=== PATIENT | female | born 2000 | race Caucasian/White ===

== ENCOUNTER 2023-03-26 03:02 | Emergency (ER) | payer SELFPAY ==
[2023-03-26] MEDS ORDERED: ONDANSETRON 4 MG/2 ML VIAL ONE (03:52)
[2023-03-26] MEDS ORDERED: NA CHLORIDE 0.9% 1,000 ML ONE (03:52)
[2023-03-26 03:56] LABS: Specific Gravity 1.029 (1.005-1.030)
[2023-03-26 03:58] LABS: Calcium Oxalate Crystals- Ur Moderate /HPF (None Seen); Specific Gravity 1.029 (1.005-1.030); Urine Bacteria <20 /HPF (<20); Urine Bilirubin NEGATIVE (Negative); Urine Blood Negative (Negative); Urine Clarity Extremely Turbid (Clear); Urine Color Yellow (Yellow); Urine Glucose NEGATIVE (Negative); Urine Mucus 1+ /HPF (None Seen); Urine Protein TRACE (Negative); Urine Urobilinogen 1+ (Normal)
[2023-03-26 04:05] LABS: Absolute Lymphocytes (CBC) 3.3 K/uL (0.7-4.9); Hematocrit 40.9 % (36.0-45.0); Lymphocytes % 32.6 % (15.3-44.8); MPV 7.2 fL (7.6-11.3); Platelets 314 thou/uL (152-406); RBC Red Blood Cell Count 4.65 M/uL (3.86-4.86)
[2023-03-26 04:14] LABS: Albumin 3.7 g/dL (3.4-5.0); Bilirubin Total 0.5 mg/dL (0.2-1.0); Potassium 3.7 mEq/L (3.5-5.1); Protein, Total 7.5 g/dL (6.4-8.2)
--- NOTE | 2023-03-26 05:25 | EDPHYS ---
Physician Documentation [facility] Name: Daina Mehta Age: 22 yrs Sex: Female : 2000 Arrival Date: 03/26/2023 Time: 03:02 Bed 5 Private MD: ED Physician Will Feliciano HPI: 03/26 03:33 This 22 yrs old Female presents to ER via Ambulatory with complaints of sp4 Abdominal Pain, Back Pain. 03:44 a 22-year-old female presents with acute onset of upper abdominal pain described as sp4 crampy pain starting several hours ago at home. Patient has denied any other symptoms. 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 - Social history:: Smoking status: Patient denies any tobacco usage or history of. Patient/guardian denies using alcohol, street drugs. - Family history:: not pertinent. ROS: 03:44 Constitutional: Negative for fever, chills, and weight loss, positive upper abdominal sp4 pain bilaterally 03:44 All other systems are negative, Exam: 03:44 Constitutional: This is a well developed, well nourished patient who is awake, alert, sp4 and in no acute distress. Head/Face: Normocephalic, atraumatic. Eyes: Pupils equal round and reactive to light, extra-ocular motions intact. Lids and lashes normal. Conjunctiva and sclera are not injected. Cornea within normal limits. Periorbital areas with no swelling, redness, or edema. ENT: Nares patent. No nasal discharge, no septal abnormalities noted. Tympanic membranes are normal and external auditory canals are clear. Oropharynx with no redness, swelling, or masses, exudates, or evidence of obstruction, uvula midline. Mucous membranes moist. Neck: Trachea midline, no thyromegaly or masses palpated, and no cervical lymphadenopathy. Supple, full range of motion without nuchal rigidity, or vertebral point tenderness. Chest/axilla: Normal chest wall appearance and motion. Nontender with no deformity. No lesions are appreciated. Cardiovascular: Regular rate and rhythm with a normal S1 and S2. No gallops, murmurs, or rubs. Normal PMI, no JVD. No pulse deficits. Respiratory: Lungs have equal breath sounds bilaterally, clear to auscultation and percussion. No rales, rhonchi or wheezes noted. No increased work of breathing, no retractions or nasal flaring. Abdomen/GI: Soft, non-tender, with normal bowel sounds. No distension or tympany. No guarding or rebound. No evidence of tenderness throughout. Back: No spinal tenderness. No costovertebral tenderness. Skin: Warm, dry with normal turgor. Normal color with no rashes, no lesions, and no evidence of cellulitis. MS/ Extremity: Pulses equal, no cyanosis. Neurovascular intact. Full, normal range of motion. Neuro: Awake and alert, GCS 15, oriented to person, place, time, and situation. Cranial nerves II-XII grossly intact. Motor strength 5/5 in all extremities. Sensory grossly intact. Psych: Awake, alert, with orientation to person, place and time. Behavior, mood, and affect are within normal limits Vital Signs: 03:08 BP 129 / 77; Pulse 87; Resp 16; Temp 97.7; Pulse Ox 100% ; Weight 68.04 kg; Height 5 jj7 ft. 4 in. ; Pain 5/10; 05:00 BP 114 / 74; Pulse 79; Resp 16; Pulse Ox 100% on R/A; pf1 03:08 Body Mass Index 25.75 (68.04 kg, 162.56 cm) 7 03:08 Pain Scale: Adult jj7 MDM: 03:25 Patient medically screened. sp4 05:14 ED course: US - CLINICAL HISTORY: The patient is 22 years old and is Female; ABD PAIN sp4 TECHNIQUE: Real-time ultrasound of the right upper quadrant with image documentation. COMPARISON: No relevant prior studies available. FINDINGS: Gallbladder: Multiple stones in the gallbladder. Gallbladder wall thickness 1.8 mm. No pericholecystic fluid. Common bile duct: Common bile duct 3.8 mm in diameter. No stones. No dilation. Pancreas: Pancreas not well visualized. IMPRESSION: Cholelithiasis. . 05:21 Differential diagnosis: Peptic Ulcer Pyelonephritis Scoliosis spinal injury. Data sp4 reviewed: vital signs, nurses notes, old medical records, lab test result(s), electrolytes, radiologic studies, ultrasound. Consideration of Admission/Observation Escalation of care including admission/observation considered. ED course: Patient has signs of cholelithiasis without acute cholecystitis. She will be prescribed ondansetron and ibuprofen, will refer patient to Dr. Arredondo for consultation for cholecystectomy. 03/26 03:24 Order name: CBC with Diff; Complete Time: 04:51 sp4 03/26 03:24 Order name: CMP; Complete Time: 04:51 sp4 03/26 03:24 Order name: Lipase; Complete Time: 04:51 sp4 03/26 03:24 Order name: Test, Urine; Complete Time: 04:51 sp4 03/26 03:24 Order name: Urinalysis w/ reflexes; Complete Time: 04:51 sp4 03/26 03:32 Order name: US Abdomen Limited sp4 03/26 03:24 Order name: IV Saline Lock; Complete Time: 03:53 sp4 03/26 03:24 Order name: Labs collected and sent; Complete Time: 03:53 sp4 Administered Medications: 03:45 Drug: NS 0.9% IV 1000 ml IV at 1 bolus Per protocol; 1000 mL bolus Route: IV; Rate: 1 jj7 bolus; Site: right antecubital; 05:36 Follow up: Response: No adverse reaction; IV Status: Completed infusion; IV Intake: jw7 1000ml 03:45 Drug: Ondansetron IVP 4 mg IVP once; over 2 minutes Route: IVP; Site: right antecubital;jj7 05:36 Follow up: Response: No adverse reaction; Marked relief of symptoms jw7 Disposition Summary: 03/26/23 05:24 Discharge Ordered Notes: Please see General Surgeon on the office for consultation Location: Home sp4 Problem: new sp4 Symptoms: have improved sp4 Condition: Stable sp4 Diagnosis - Other cholelithiasis without obstruction sp4 Followup: sp4 - With: Jarred Arredondo MD - When: 7 - 10 days - Reason: Recheck today's complaints Discharge Instructions: - Discharge Summary Sheet sp4 - Cholelithiasis sp4 Forms: - Patient Portal Instructions sp4 Prescriptions: - ondansetron 8 mg Oral Tablet,disintegrating - take 1 tablet ORAL route every 8 hours PRN nausea; 30 tablet; Refills: 0, sp4 Product Selection Permitted - Ibuprofen 800 mg Oral Tablet - take 1 tablet ORAL route every 8 hours As needed take with food; 30 tablet; sp4 Refills: 0, Product Selection Permitted Signatures: Dispatcher [employer] Isidoro Andrews RN RN jj7 Will Feliciano MD MD sp4 Kaelyn Sanches RN jw7
--- NOTE | 2023-03-26 05:25 | ER ---
Nurse's Notes [facility] Name: Daina Mehta Age: 22 yrs Sex: Female : 2000 Arrival Date: 03/26/2023 Time: 03:02 Bed 5 Private MD: Diagnosis: Other cholelithiasis without obstruction Presentation: 03/26 03:08 Chief complaint: Patient states: UPPER ABD PAIN THAT RADIATES AROUND HER BACK WOKE HER jj7 UP OUT OF HER SLEEP. Coronavirus screen: At this time, the client does not indicate any symptoms associated with coronavirus-19. Ebola Screen: No symptoms or risks identified at this time. Initial Sepsis Screen: Does the patient meet any 2 criteria? No. Patient's initial sepsis screen is negative. Does the patient have a suspected source of infection? No. Patient's initial sepsis screen is negative. Risk Assessment: Do you want to hurt yourself or someone else? Patient reports no desire to harm self or others. Onset of symptoms was March 26, 2023. 03:08 Method Of Arrival: Ambulatory [facility] 03:08 Acuity: NEGRO 3 jj7 Triage Assessment: 03:12 General: Appears in no apparent distress. comfortable, unkempt, Behavior is calm, jj7 cooperative, appropriate for age. Pain: Complains of pain in diaphragm Pain radiates to left subscapular area and right subscapular area. GI: Reports epigastric pain, nausea. 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 - Social history:: Smoking status: Patient denies any tobacco usage or history of. Patient/guardian denies using alcohol, street drugs. - Family history:: not pertinent. Screenin:14 [facility] ED Fall Risk Assessment (Adult) History of falling in the last 3 months, jj7 including since admission No falls in past 3 months (0 pts) Confusion or Disorientation No (0 pts) Intoxicated or Sedated No (0 pts) Impaired Gait No (0 pts) Mobility Assist Device Used No (0 pt) Altered Elimination No (0 pt) Score/Fall Risk Level 0 - 2 = Low Risk Oriented to surroundings, Maintained a safe environment. Abuse screen: Denies threats or abuse. Nutritional screening: No deficits noted. Tuberculosis screening: No symptoms or risk factors identified. Assessment: 03:12 Reassessment: see triage assessment. jj7 04:30 Reassessment: Patient appears in no apparent distress at this time. Patient and/or jw7 family updated on plan of care and expected duration. Pain level reassessed. Patient is alert, oriented x 3, equal unlabored respirations, skin warm/dry/pink. Patient states symptoms have improved. 05:30 Reassessment: No changes from previously documented assessment. Patient and/or family jw7 updated on plan of care and expected duration. Pain level reassessed. Patient is alert, oriented x 3, equal unlabored respirations, skin warm/dry/pink. Vital Signs: 03:08 BP 129 / 77; Pulse 87; Resp 16; Temp 97.7; Pulse Ox 100% ; Weight 68.04 kg; Height 5 j7 ft. 4 in. ; Pain 5/10; 05:00 BP 114 / 74; Pulse 79; Resp 16; Pulse Ox 100% on R/A; pf1 03:08 Body Mass Index 25.75 (68.04 kg, 162.56 cm) jj7 03:08 Pain Scale: Adult jj7 ED Course: 03:04 Patient arrived in ED. jj6 03:12 Triage completed. jj7 03:12 Arm band placed on left wrist. Patient placed in an exam room, on a stretcher. jj7 03:14 Patient has correct armband on for positive identification. Bed in low position. Call jj7 light in reach. Adult w/ patient. 03:24 Will Feliciano MD is Attending Physician. sp4 03:42 Inserted saline lock: 20 gauge in right antecubital area, using aseptic technique. jj7 Blood collected. 03:53 CBC with Diff Sent. jj7 03:53 CMP Sent. jj7 03:53 Lipase Sent. jj7 03:53 Urinalysis w/ reflexes Sent. jj7 03:53 Test, Urine Sent. jj7 04:12 US Abdomen Limited In Process Unspecified. EDMS 05:24 Jarred Arredondo MD is Referral Physician. sp4 05:36 No provider procedures requiring assistance completed. IV discontinued, intact, jw7 bleeding controlled, No redness/swelling at site. Pressure dressing applied. 05:41 Provided Education on: discharge instructions and medication usage. jw7 Administered Medications: 03:45 Drug: NS 0.9% IV 1000 ml IV at 1 bolus Per protocol; 1000 mL bolus Route: IV; Rate: 1 jj7 bolus; Site: right antecubital; 05:36 Follow up: Response: No adverse reaction; IV Status: Completed infusion; IV Intake: jw7 1000ml 03:45 Drug: Ondansetron IVP 4 mg IVP once; over 2 minutes Route: IVP; Site: right antecubital;jj7 05:36 Follow up: Response: No adverse reaction; Marked relief of symptoms jw7 Medication: 05:36 VIS not applicable for this client. jw7 Intake: 05:36 IV: 1000ml; Total: 1000ml. jw7 Outcome: 05:24 Discharge ordered by . sp4 05:41 Discharged to home ambulatory, jw7 05:41 Condition: stable 05:41 Discharge instructions given to patient, Instructed on discharge instructions, follow up and referral plans. medication usage, Demonstrated understanding of instructions, follow-up care, medications, Prescriptions given X 2, 05:42 Patient left the ED. jw7 Signatures: Dispatcher [employer] EDMS Padmini Marie jj6 Kaelyn Sanches RN RN jw7 Isidoro Torres RN RN jj7 Fatimah John RN RN pf1 Will Feliciano MD MD sp4
[2023-03-26 06:06] VITALS: TEMP 97.7; O2SAT 100
[2023-03-26 06:07] VITALS: BP 114/74
--- NOTE | 2023-03-26 14:47 | RAD REPORT ---
EXAM DESCRIPTION: US - Abdomen Exam Limited - 03/26/2023 4:10 am CLINICAL HISTORY: The patient is 22 years old and is Female; ABD PAIN TECHNIQUE: Real-time ultrasound of the right upper quadrant with image documentation. COMPARISON: No relevant prior studies available. FINDINGS: Gallbladder: Multiple stones in the gallbladder. Gallbladder wall thickness 1.8 mm. No pericholecystic fluid. Common bile duct: Common bile duct 3.8 mm in diameter. No stones. No dilation. Pancreas: Pancreas not well visualized. IMPRESSION: Cholelithiasis. Electronically signed by: Ingrid Powell MD 03/26/2023 4:31 AM CDT Due to temporary technical issues with the PACS/Fluency reporting system, reports are being signed by the in house radiologists without review as a courtesy to insure prompt reporting. The interpreting radiologist is fully responsible for the content of the report.
== END 2023-03-26 05:42 | disposition home or self-care (01) ==
LOC: ER 03:02
DX: K80.80 Other cholelithiasis without obstruction (principal)
CPT/HCPCS: 36415; 76705; 80053; 81001; 81025; 83690; 85025; 96361; 96374; 99284; J2405; J7030

== ENCOUNTER → 2023-05-21 | Emergency (ER) | payer SELFPAY ==
[~2023-05-21] MED LIST: FAMOTIDINE 20 MG/2 ML VIAL IV ONE; KETOROLAC 30 MG/ML INJ ONE; MORPHINE 4 MG/ML SYR ONE; NA CHLORIDE 0.9% 1,000 ML ONE; ONDANSETRON 4 MG/2 ML VIAL ONE; levoFLOXacin 250 MG TAB ONE
[2023-05-21 21:21] LABS: Specific Gravity 1.017 (1.005-1.030)
[2023-05-21 21:26] LABS: Albumin 3.4 g/dL (3.4-5.0); Bilirubin Total 0.5 mg/dL (0.2-1.0); Potassium 3.6 mEq/L (3.5-5.1); Protein, Total 7.3 g/dL (6.4-8.2)
--- NOTE | 2023-05-21 21:26 | RAD REPORT ---
EXAM DESCRIPTION: US - Abdomen Exam Limited - 05/21/2023 9:12 pm CLINICAL HISTORY: Upper abdominal pain COMPARISON: Abdomen Exam Limited dated 03/26/2023 FINDINGS: The gallbladder demonstrates shadowing gallstone No pericholecystic fluid or gallbladder w all thickening. The common bile duct was unable to be visualized. The liver demonstrates no findings of intrahepatic biliary dilatation. IMPRESSION: Cholelithiasis. No sonographic evidence of acute cholecystitis. Unable to visualize the common bile duct.
[2023-05-21 21:29] LABS: Specific Gravity 1.017 (1.005-1.030); Urine Bacteria <20 /HPF (<20); Urine Bilirubin NEGATIVE (Negative); Urine Blood 2+ (Negative); Urine Clarity Extremely Turbid (Clear); Urine Color Yellow (Yellow); Urine Crystals Unidentified Few /HPF (None Seen); Urine Glucose NEGATIVE (Negative); Urine Mucus Slight /HPF (None Seen); Urine Protein 3+ (Negative); Urine RBC >50 /HPF (None Seen); Urine Urobilinogen Normal (Normal); Urine pH 7.5 (5.0-7.0)
[2023-05-21 21:34] LABS: Absolute Lymphocytes (CBC) 2.1 K/uL (0.7-4.9); MCV 88.2 fL (80-100); MPV 7.6 fL (7.6-11.3); Platelets 256 thou/uL (152-406); RBC Red Blood Cell Count 4.42 M/uL (3.86-4.86)
--- NOTE | 2023-05-21 22:50 | RAD REPORT ---
EXAM DESCRIPTION: CTAbdomen Pelvis W Contrast - 05/21/2023 10:41 pm CLINICAL HISTORY: ABD PAIN COMPARISON: No comparisons TECHNIQUE: CT of the abdomen and pelvis was performed with IV contrast. All CT scans are performed using dose optimization technique as appropriate and may include automated exposure control or mA/KV adjustment according to patient size. FINDINGS: Lower chest: No acute abnormality. Liver: No acute abnormality or suspicious lesions. Biliary: Cholelithiasis but no CT evidence of acute cholecystitis. Stomach: No significant focal abnormality. Duodenum: No significant focal abnormality. Pancreas: No significant abnormality. Spleen: No significant abnormality. Adrenal: No suspicious lesions. Kidney/ureter: No hydronephrosis. No renal calculi. Retroperitoneum: No retroperitoneal adenopathy. Vascular: No aneurysm. Bowel: No significant focal abnormality. Normal appendix. Peritoneum: No ascites or free air. Tiny fat containing umbilical hernia. Bladder: Bladder wall thickening and hyperenhancement. Reproductive: No adnexal masses. Bones: No acute fracture. Other: n/a IMPRESSION: Moderate bladder wall thickening and hyperenhancement. This is concerning for cystitis. Correlate with urinalysis. Cholelithiasis without CT is acute cholecystitis. Normal appendix. No urinary tract calculi identified.
--- NOTE | 2023-05-22 00:28 | ER ---
Nurse's Notes [facility] Name: Daina Mehta Age: 22 yrs Sex: Female : 2000 Arrival Date: 05/21/2023 Time: 20:19 Bed 5 Private MD: Diagnosis: Other cholelithiasis without obstruction;UTI/ Urinary tract infection, site not specified;Acute biliary colic, nausea vomiting, acute UTI with cystitis. Presentation: 05/21 20:33 Chief complaint: Patient states: Here a few months ago for gallstones, I think its vc1 another one of those because it feels similiar. Coronavirus screen: Client denies travel out of the [place] in the last 14 days. At this time, the client does not indicate any symptoms associated with coronavirus-19. Ebola Screen: Patient negative for fever greater than or equal to 101.5 degrees Fahrenheit, and additional compatible Ebola Virus Disease symptoms Patient denies exposure to infectious person. Patient denies travel to an Ebola-affected area in the 21 days before illness onset. No symptoms or risks identified at this time. Risk Assessment: Do you want to hurt yourself or someone else? Patient reports no desire to harm self or others. Onset of symptoms was May 21, 2023 at 17:00. 20:33 Method Of Arrival: Ambulatory vc1 20:33 Acuity: NEGRO 3 vc1 20:36 Initial Sepsis Screen: Does the patient meet any 2 criteria? No. Patient's initial vc1 sepsis screen is negative. Does the patient have a suspected source of infection? No. Patient's initial sepsis screen is negative. Triage Assessment: 20:34 General: Appears in no apparent distress. comfortable, Behavior is calm, cooperative, vc1 appropriate for age. Pain: Complains of pain in abdomen. EENT: No deficits noted. No signs and/or symptoms were reported regarding the EENT system. Neuro: Level of Consciousness is awake, alert, obeys commands, Oriented to person, place, time, situation, Appropriate for age. Cardiovascular: No deficits noted. Respiratory: Airway is patent Respiratory effort is even, unlabored, Respiratory pattern is regular, symmetrical. GI: Reports upper abdominal pain, nausea, vomiting. : Reports has UTI. Derm: No deficits noted. No signs and/or symptoms reported regarding the dermatologic system. Musculoskeletal: No deficits noted. No signs and/or symptoms reported regarding the musculoskeletal system. 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 Flu vaccine is not up to date. - Social history:: Smoking status: Patient denies any tobacco usage or history of. Screenin:15 [facility] ED Fall Risk Assessment (Adult) History of falling in the last 3 months, tl4 including since admission No falls in past 3 months (0 pts) Confusion or Disorientation No (0 pts) Intoxicated or Sedated No (0 pts) Impaired Gait No (0 pts) Mobility Assist Device Used No (0 pt) Altered Elimination No (0 pt) Score/Fall Risk Level 0 - 2 = Low Risk Oriented to surroundings, Maintained a safe environment, Provided non-skid footwear. Abuse screen: Denies threats or abuse. Denies injuries from another. Nutritional screening: No deficits noted. Tuberculosis screening: No symptoms or risk factors identified. Assessment: 21:14 Reassessment: No changes from previously documented assessment. Patient and/or family tl4 updated on plan of care and expected duration. Pain level reassessed. Patient is alert, oriented x 3, equal unlabored respirations, skin warm/dry/pink. Pain: Complains of pain in abdomen. GI: Pt is actively vomiting clear fluid, Patient currently denies. 22:00 Reassessment: Patient appears in no apparent distress at this time. No changes from jw7 previously documented assessment. Patient and/or family updated on plan of care and expected duration. Pain level reassessed. Patient is alert, oriented x 3, equal unlabored respirations, skin warm/dry/pink. 23:00 Reassessment: Patient appears in no apparent distress at this time. No changes from jw7 previously documented assessment. Patient and/or family updated on plan of care and expected duration. Pain level reassessed. Patient is alert, oriented x 3, equal unlabored respirations, skin warm/dry/pink. 05/22 00:09 Reassessment: Patient appears in no apparent distress at this time. No changes from jw7 previously documented assessment. Patient and/or family updated on plan of care and expected duration. Pain level reassessed. Patient is alert, oriented x 3, equal unlabored respirations, skin warm/dry/pink. Vital Signs: 05/21 20:35 Weight 68.04 kg; Height 5 ft. 4 in. ; Pain 5/10; vc1 20:36 BP 118 / 85; Pulse 83; Resp 15; Temp 98.1; Pulse Ox 100% ; vc1 21:21 BP 104 / 91; Pulse 93; Resp 16; Pulse Ox 100% on R/A; Pain 8/10; tl4 22:38 BP 111 / 66; Pulse 88; Resp 17 S; Pulse Ox 99% on R/A; bp 23:30 BP 112 / 71; Pulse 73; Resp 17 S; Pulse Ox 99% on R/A; jw7 20:35 Body Mass Index 25.75 (68.04 kg, 162.56 cm) vc1 20:35 Pain Scale: Adult vc1 21:21 Pain Scale: Adult tl4 ED Course: 20:21 Patient arrived in ED. gm2 20:28 Will Feliciano MD is Attending Physician. sp4 20:34 Triage completed. vc1 20:36 Arm band placed on right wrist. vc1 21:00 Missed attempt(s): 20 gauge Bleeding controlled, band aid applied, catheter tip intact. oe 21:02 Inserted saline lock: 20 gauge in left antecubital area, using aseptic technique. Blood oe collected. 21:03 EKG done. oe 21:06 CBC with Diff Sent. oe 21:06 CMP Sent. oe 21:06 Lipase Sent. oe 21:06 Urinalysis W/Microscopic Sent. oe 21:06 Test, Urine Sent. oe 21:13 Abdomen Limited US Sent. tl4 21:13 CBC with Diff Sent. tl4 21:13 CMP Sent. tl4 21:13 Lipase Sent. tl4 21:14 Abdomen Limited US In Process Unspecified. EDMS 21:15 Patient has correct armband on for positive identification. Placed in gown. Bed in low tl4 position. Call light in reach. Side rails up X2. Adult w/ patient. Provided Education on: ED process. Door closed. Lights dimmed. Warm blanket given. 21:17 No provider procedures requiring assistance completed. tl4 22:43 CT Abd/Pelvis - IV Contrast Only In Process Unspecified. EDMS 05/22 00:26 Jarred Arredondo MD is Referral Physician. sp4 00:32 Aniket Robles, ROSA ELENA is Primary Nurse. rv 00:39 IV discontinued, intact, bleeding controlled, No redness/swelling at site. Pressure rv dressing applied. Administered Medications: 05/21 21:11 Drug: NS 0.9% IV 1000 ml IV at 1 bolus Per protocol; 1000 mL bolus Route: IV; Rate: 1 tl4 bolus; Site: left antecubital; 21:48 Follow up: Response: No adverse reaction; IV Status: Completed infusion; IV Intake: tl4 1000ml 21:11 Drug: Famotidine IVP 20 mg IVP once; dilute with 10 mL 0.9% NaCl; give over 2 minutes tl4 Route: IVP; Infused Over: 2 mins; Site: left antecubital; 21:46 Follow up: Response: No adverse reaction tl4 21:11 Drug: Ondansetron IVP 8 mg IVP once; over 2 minutes Route: IVP; Infused Over: 2 mins; tl4 Site: left antecubital; 21:46 Follow up: Response: Nausea is decreased tl4 21:12 Drug: TORadol - Ketorolac IVP 30 mg IVP once Route: IVP; Site: left antecubital; tl4 21:47 Follow up: Response: Pain is decreased tl4 21:12 Drug: morphine IVP or IV 4 mg IVP once over 4 mins Route: IVP; Infused Over: 4 mins; tl4 Site: left antecubital; 21:48 Follow up: Response: Pain is decreased tl4 05/22 00:39 Drug: LevOfloxacin PO 500 mg PO once Route: PO; rv 00:39 Follow up: Response: Medication administered at discharge. rv Medication: 05/21 21:17 VIS not applicable for this client. tl4 Intake: 21:48 IV: 1000ml; Total: 1000ml. tl4 Outcome: 05/22 00:27 Discharge ordered by . sp4 00:39 Discharged to home ambulatory, rv 00:39 Condition: good 00:39 Discharge instructions given to patient, Instructed on discharge instructions, follow up and referral plans. medication usage, Demonstrated understanding of instructions, follow-up care, medications, Prescriptions given X 4, 00:39 Patient left the ED. rv Signatures: Dispatcher [employer] EDMS Cody Kurtz Brian RN RN Aniket Weaver RN RN rv Yamileth Valdivia RN RN vc1 Kaelyn Sanches RN RN jw7 Will Feliciano MD MD sp4 Pretty Prado 2 Ruben Genao 4
--- NOTE | 2023-05-22 00:28 | EDPHYS ---
Physician Documentation [facility] Name: Daina Mehta Age: 22 yrs Sex: Female : 2000 Arrival Date: 05/21/2023 Time: 20:19 Bed 5 Private MD: ED Physician Will Feliciano HPI: 05/21 20:28 This 22 yrs old Female presents to ER via Unassigned with complaints of sp4 Nausea/Vomiting, POSSIBLE UTI. 21:34 27 -year-old female presents with acute onset abdominal pain and for abdomen and sp4 vomiting starting 5 PM today. Patient also states that she has urinary tract infection diagnosed few days ago. 2 months ago patient was diagnosed with gallstones. Old record review US - EXAM: US Abdomen Limited, Gallbladder CLINICAL HISTORY: The patient is 22 years old and is Female; ABD PAIN TECHNIQUE: Real-time ultrasound of the right upper quadrant with image documentation. COMPARISON: No relevant prior studies available. FINDINGS: Gallbladder: Multiple stones in the gallbladder. Gallbladder wall thickness 1.8 mm. No pericholecystic fluid. Common bile duct: Common bile duct 3.8 mm in diameter. No stones. No dilation. Pancreas: Pancreas not well visualized. IMPRESSION: Cholelithiasis. Electronically signed by: Ingrid Powell MD 03/26/2023 . [employer]: 20:35 LMP N/A - Irregular menses, Not vc1 Historical: - Allergies: 20:36 No Known Allergies; vc1 - Home Meds: 20:36 None [Active]; vc1 - PMHx: 20:36 None; vc1 - PSHx: 20:36 None; vc1 - Immunization history:: Client reports having NOT received the Covid vaccine. Flu vaccine is not up to date. - Social history:: Smoking status: Patient denies any tobacco usage or history of. ROS: 21:35 Constitutional: Negative for fever, chills, and weight loss, abdominal pain and sp4 vomiting 21:35 All other systems are negative, Exam: 21:35 Constitutional: This is a well developed, well nourished patient who is awake, alert, sp4 and in no acute distress. Head/Face: Normocephalic, atraumatic. Eyes: Pupils equal round and reactive to light, extra-ocular motions intact. Lids and lashes normal. Conjunctiva and sclera are not injected. Cornea within normal limits. Periorbital areas with no swelling, redness, or edema. ENT: Nares patent. No nasal discharge, no septal abnormalities noted. Tympanic membranes are normal and external auditory canals are clear. Oropharynx with no redness, swelling, or masses, exudates, or evidence of obstruction, uvula midline. Mucous membranes moist. Neck: Trachea midline, no thyromegaly or masses palpated, and no cervical lymphadenopathy. Supple, full range of motion without nuchal rigidity, or vertebral point tenderness. Chest/axilla: Normal chest wall appearance and motion. Nontender with no deformity. No lesions are appreciated. Cardiovascular: Regular rate and rhythm with a normal S1 and S2. No gallops, murmurs, or rubs. Normal PMI, no JVD. No pulse deficits. Respiratory: Lungs have equal breath sounds bilaterally, clear to auscultation and percussion. No rales, rhonchi or wheezes noted. No increased work of breathing, no retractions or nasal flaring. Abdomen/GI: Soft, with normal bowel sounds. No distension or tympany. No guarding or rebound. Positive Right upper abdominal tenderness Back: No spinal tenderness. No costovertebral tenderness. Skin: Warm, dry with normal turgor. Normal color with no rashes, no lesions, and no evidence of cellulitis. MS/ Extremity: Pulses equal, no cyanosis. Neurovascular intact. Full, normal range of motion. Neuro: Awake and alert, GCS 15, oriented to person, place, time, and situation. Cranial nerves II-XII grossly intact. Motor strength 5/5 in all extremities. Sensory grossly intact. Psych: Awake, alert, with orientation to person, place and time. Behavior, mood, and affect are within normal limits Vital Signs: 20:35 Weight 68.04 kg; Height 5 ft. 4 in. ; Pain 5/10; vc1 20:36 BP 118 / 85; Pulse 83; Resp 15; Temp 98.1; Pulse Ox 100% ; vc1 21:21 BP 104 / 91; Pulse 93; Resp 16; Pulse Ox 100% on R/A; Pain 8/10; tl4 22:38 BP 111 / 66; Pulse 88; Resp 17 S; Pulse Ox 99% on R/A; bp 23:30 BP 112 / 71; Pulse 73; Resp 17 S; Pulse Ox 99% on R/A; jw7 20:35 Body Mass Index 25.75 (68.04 kg, 162.56 cm) vc1 20:35 Pain Scale: Adult vc1 21:21 Pain Scale: Adult tl4 MDM: 20:28 Patient medically screened. sp4 21:32 ED course: US - EXAM DESCRIPTION: US - Abdomen Exam Limited - 05/21/2023 9:12 pm sp4 CLINICAL HISTORY: Upper abdominal pain COMPARISON: Abdomen Exam Limited dated 03/26/2023 FINDINGS: The gallbladder demonstrates shadowing gallstone No pericholecystic fluid or gallbladder wall thickening. The common bile duct was unable to be visualized. The liver demonstrates no findings of intrahepatic biliary dilatation. IMPRESSION: Cholelithiasis. No sonographic evidence of acute cholecystitis. Unable to visualize the common bile duct. . 05/22 00:22 ED course: CT - TECHNIQUE: CT of the abdomen and pelvis was performed with IV contrast. sp4 All CT scans are performed using dose optimization technique as appropriate and may include automated exposure control or mA/KV adjustment according to patient size. FINDINGS: Lower chest: No acute abnormality. Liver: No acute abnormality or suspicious lesions. Biliary: Cholelithiasis but no CT evidence of acute cholecystitis. Stomach: No significant focal abnormality. Duodenum: No significant focal abnormality. Pancreas: No significant abnormality. Spleen: No significant abnormality. Adrenal: No suspicious lesions. Kidney/ureter: No hydronephrosis. No renal calculi. Retroperitoneum: No retroperitoneal adenopathy. Vascular: No aneurysm. Bowel: No significant focal abnormality. Normal appendix. Peritoneum: No ascites or free air. Tiny fat containing umbilical hernia. Bladder: Bladder wall thickening and hyperenhancement. Reproductive: No adnexal masses. Bones: No acute fracture. Other: n/a IMPRESSION: Moderate bladder wall thickening and hyperenhancement. This is concerning for cystitis. Correlate with urinalysis. Cholelithiasis without CT is acute cholecystitis. Normal appendix. No urinary tract calculi identified. . 00:25 Differential diagnosis: Nonspecific abd pain, gastritis, cholecystitis, pancreatitis, sp4 appendicitis, diverticulitis, viral gastroenteritis, gastroenteritis. Data reviewed: vital signs, nurses notes, lab test result(s), radiologic studies, CT scan, ultrasound. Consideration of Admission/Observation Escalation of care including admission/observation considered. ED course: Has signs of cholelithiasis without acute cholecystitis. Also signs of urinary bladder infection with cystitis hyperenhancement of urinary bladder.. Will prescribe p.o. ibuprofen, p.o. tramadol, p.o. ondansetron, and p.o. levofloxacin. Typically levofloxacin 500 mg p.o. once a day for [address] Arredondo with General Surgery . 05/21 20:28 Order name: Test, Urine; Complete Time: 21:31 sp4 05/21 20:28 Order name: Urinalysis W/Microscopic; Complete Time: 21:31 sp4 05/21 20:37 Order name: CBC with Diff; Complete Time: 00:29 sp4 05/21 20:37 Order name: CMP; Complete Time: 21:28 sp4 05/21 20:37 Order name: Lipase; Complete Time: 21:28 sp4 05/21 21:32 Order name: Urine Culture EDCT 05/21 20:37 Order name: Abdomen Limited US; Complete Time: 21:28 sp4 05/21 20:37 Order name: CT Abd/Pelvis - IV Contrast Only; Complete Time: 00:29 sp4 05/21 20:37 Order name: IV Saline Lock; Complete Time: 21:06 sp4 05/21 20:37 Order name: Labs collected and sent; Complete Time: 21:06 sp4 Administered Medications: 05/21 21:11 Drug: NS 0.9% IV 1000 ml IV at 1 bolus Per protocol; 1000 mL bolus Route: IV; Rate: 1 tl4 bolus; Site: left antecubital; 21:48 Follow up: Response: No adverse reaction; IV Status: Completed infusion; IV Intake: tl4 1000ml 21:11 Drug: Famotidine IVP 20 mg IVP once; dilute with 10 mL 0.9% NaCl; give over 2 minutes tl4 Route: IVP; Infused Over: 2 mins; Site: left antecubital; 21:46 Follow up: Response: No adverse reaction tl4 21:11 Drug: Ondansetron IVP 8 mg IVP once; over 2 minutes Route: IVP; Infused Over: 2 mins; tl4 Site: left antecubital; 21:46 Follow up: Response: Nausea is decreased tl4 21:12 Drug: TORadol - Ketorolac IVP 30 mg IVP once Route: IVP; Site: left antecubital; tl4 21:47 Follow up: Response: Pain is decreased tl4 21:12 Drug: morphine IVP or IV 4 mg IVP once over 4 mins Route: IVP; Infused Over: 4 mins; tl4 Site: left antecubital; 21:48 Follow up: Response: Pain is decreased tl4 05/22 00:39 Drug: LevOfloxacin PO 500 mg PO once Route: PO; rv 00:39 Follow up: Response: Medication administered at discharge. rv Disposition Summary: 05/22/23 00:27 Discharge Ordered Problem: new sp4 Symptoms: have improved sp4 Condition: Stable sp4 Diagnosis - Other cholelithiasis without obstruction sp4 - UTI/ Urinary tract infection, site not specified sp4 - Acute biliary colic, nausea vomiting, acute UTI with cystitis. sp4 Followup: sp4 - With: Jarred Arreodndo MD - When: 7 - 10 days - Reason: Recheck today's complaints Discharge Instructions: - Discharge Summary Sheet sp4 - Cholelithiasis, [id number] sp4 Forms: - Patient Portal Instructions sp4 Prescriptions: - Ibuprofen 800 mg Oral Tablet - take 1 tablet ORAL route every 8 hours As needed take with food; 30 tablet; sp4 Refills: 0, Product Selection Permitted - Tramadol 50 mg Oral tablet - take 1 tablet ORAL route every 8 hours as needed; 20 tablet; Refills: 0, sp4 Product Selection Permitted - ondansetron 8 mg Oral Tablet,disintegrating - take 1 tablet ORAL route every 8 hours PRN nausea; 30 tablet; Refills: 0, sp4 Product Selection Permitted - levofloxacin 500 mg Oral tablet - take 1 tablet ORAL route once daily for 5 days; 5 tablet; Refills: 0, Product sp4 Selection Permitted Signatures: Dispatcher [employer] Aniket Sevilla RN RN Yamileth Hyman RN RN vc1 Will Feliciano MD MD sp4 LogdaRuben olivo tl4
[2023-05-22 06:50] VITALS: TEMP 98.1
[2023-05-22 06:56] VITALS: BP 112/71; O2SAT 99
== END ==
LOC: ER 20:19
DX: K80.80 Other cholelithiasis without obstruction (principal); N39.0 Urinary tract infection, site not specified; K80.50 Calculus of bile duct without cholangitis or cholecystitis without obstruction
CPT/HCPCS: 36415; 74177; 76705; 80053; 81001; 81025; 83690; 85025; 87086; 87088; J2405; J7030; Q9967